=== PATIENT | female | born 1960 ===

== ENCOUNTER 2022-12-11 05:46 | Observation (INO) ==
[2022-12-11] MEDS ORDERED: Buffered Lidocaine 1% SYRIN 1 ml INTRADERM ONE (06:00)
[2022-12-11] MEDS ORDERED: Famotidine IV 10 MG/ML 2 ml VIAL (20 mg) IV ONE (06:00)
[2022-12-11] MEDS ORDERED: Lactated Ringers 1000 ml BAG 1,000 ML IV SCH (06:00)
[2022-12-11] MEDS ORDERED: fentaNYL 100 mcg/2 ml 50 MCG/ML VIAL ONE ×2 (06:42→12:35)
[2022-12-11] MEDS ORDERED: Propofol 10 MG/ML 20 ML BTL ONE (06:42)
[2022-12-11] MEDS ORDERED: Phenylephrine 40 mcg/mL 10mL (400mcg) SYRINGE ONE (06:42)
[2022-12-11] MEDS ORDERED: Midazolam 5 mg/5 ml VIAL 1 mg/ml 5 ml VIAL (5 mg) ONE (06:42)
[2022-12-11] MEDS ORDERED: Ondansetron 4 mg VIAL 2 MG/ML 2 ml VIAL ONE (06:42)
[2022-12-11] MEDS ORDERED: Rocuronium 50 mg VIAL 10 mg/ml 5 ml VIAL (50 mg) ONE ×2 (06:42→08:47)
[2022-12-11] MEDS ORDERED: Lidocaine 2% PF 5 ML VIAL ONE (06:42)
[2022-12-11] MEDS ORDERED: Dexamethasone IV 4 MG/ML VIAL 1 ml VIAL ONE (06:42)
[2022-12-11] MEDS ORDERED: ROPIVACAINE 5 MG/ML 30 ML BTL (0.5%) ONE (06:42)
[2022-12-11] MEDS ORDERED: Famotidine IV 10 MG/ML 2 ml VIAL (20 mg) ONE (06:43)
[2022-12-11] MEDS ORDERED: Clindamycin 900 MG/50 **NS BAG 900 MG/50 ML BAG ONE (06:43)
[2022-12-11] MEDS ORDERED: Bupivacaine 0.25% SDV 30 ML ONE (07:04)
[2022-12-11] MEDS ORDERED: ceFAZolin VIAL VIAL ONE (07:18)
[2022-12-11] MEDS ORDERED: BUPIVACAINE **LIPOSOME/PF 13.3 MG/ML (266MG/ 20ML) VIAL (RESTRICTED) INFIL ONE (08:00)
[2022-12-11] MEDS ORDERED: HYDROmorphone 0.5 MG/0.5 ML SYRINGE ONE ×2 (08:39→09:33)
[2022-12-11] MEDS ORDERED: Naloxone 0.4 mg VIAL 0.4 mg/ml 1 ml VIAL IV PRN (08:49)
[2022-12-11] MEDS ORDERED: fentaNYL 100 mcg/2 ml 50 MCG/ML VIAL IV PRN (08:49)
[2022-12-11] MEDS ORDERED: HYDROmorphone 1 MG/1 ML SYRINGE IV PRN (08:49)
[2022-12-11] MEDS ORDERED: Sugammadex 500 MG/5 ML 5 ml VIAL IV PUSH ONE (10:16)
[2022-12-11] MEDS ORDERED: Morphine 2 MG/ML SYRINGE IV PRN (10:40)
[2022-12-11] MEDS ORDERED: Lactulose 30 ml UDC PO PRN (10:40)
[2022-12-11] MEDS ORDERED: Ondansetron ODT 4 mg TAB 4 MG TAB PO PRN (10:40)
[2022-12-11] MEDS ORDERED: Ondansetron 4 mg VIAL 2 MG/ML 2 ml VIAL IV PRN (10:40)
[2022-12-11] MEDS ORDERED: Magnesium Hydroxide LIQ 30 ML UDC PO PRN (10:40)
[2022-12-11] MEDS ORDERED: Clindamycin 600 MG/D5W BAG 600 MG/50 ML BAG IV SCH (11:00)
[2022-12-11] MEDS ORDERED: Dextrose 50% Syringe 50 ml 25 GM/50 ML SYRINGE IV PUSH PRN (13:25)
[2022-12-11] MEDS: Lactated Ringers 1000 ml BAG 1,000 ML IV SCH (13:50)
[2022-12-11] MEDS: ceFAZolin 1 GM ADVAN 1 GM in NS 0.9% 50 ML 50 ML IVPB SCH (16:28)
[2022-12-11] MEDS: Magnesium Hydroxide LIQ 30 ML UDC PO SCH (21:21)
[2022-12-12] MEDS: Lactated Ringers 1000 ml BAG 1,000 ML IV SCH (00:23)
[2022-12-12] MEDS: ceFAZolin 1 GM ADVAN 1 GM in NS 0.9% 50 ML 50 ML IVPB SCH ×2 (00:25→07:53)
[2022-12-12 07:02] LABS: Hematocrit 24.5 % (35-45); Hemoglobin 7.7 g/dL (11.5-14.3); Mean Platelet Volume 8.4 fL (7.5-11.2); Platelet Count 241 10^3/uL (150-450)
[2022-12-12 07:13] LABS: Calcium 8.5 mg/dL (8.6-10.3); Creatinine, Serum 0.78 mg/dL (0.51-0.95); Potassium 4.2 mmol/L (3.5-5.0); eGFR CKD-EPI 86.4 (>60)
[2022-12-12] MEDS: Magnesium Hydroxide LIQ 30 ML UDC PO SCH (07:49)
[2022-12-12] MEDS ORDERED: Vitamin THERAPEUTIC TAB PO SCH (09:00)
[2022-12-12 10:45] VITALS: BP 132/77
[2022-12-12 14:52] LABS: Hematocrit 23.5 % (35-45); Hemoglobin 7.5 g/dL (11.5-14.3)
== END 2022-12-12 15:46 | disposition home or self-care (01) ==
LOC: OR 05:46 → SSU 05:46
PROVIDERS: ADMIT Orthopaedic Surgery Sports Medicine; ATTEND Orthopaedic Surgery Sports Medicine